=== PATIENT | female | born 1965 | race Asian ===

== ENCOUNTER 2024-06-13 10:34 | Emergency (ER) | payer OTHER ==
[~2024-06-13] VITALS: Ht 154.9 cm; Wt 51.4 kg
[2024-06-13 10:49] VITALS: TEMP 97.6
[2024-06-13 11:12] LABS: BASOPHILS % (AUTO) 1.1 % (0.0-2.0); EOSINOPHILS % (AUTO) 6.1 % (1.0-6.0); HEMOGLOBIN 12.8 g/dL (12.0-16.0); LYMPHOCYTES # (AUTO) 2.2 K/uL (1.0-4.8); LYMPHOCYTES % (AUTO) 31.7 % (22.0-44.0); MEAN CORPUSCULAR HEMOGLOBIN 31.8 pg (26.0-34.0); MEAN CORPUSCULAR HGB CONC 34.5 G/dL (31.0-37.0); MEAN CORPUSCULAR VOLUME 92 fL (80-100); MONOCYTES # (AUTO) 0.5 K/uL (0.1-1.0); MONOCYTES % (AUTO) 7.6 % (2.0-9.0); NEUTROPHILS # (AUTO) 3.7 K/uL (1.8-7.7); NEUTROPHILS % (AUTO) 53.5 % (40.0-70.0); PLATELET COUNT (AUTO) 303 K/uL (150-450); RED BLOOD CELL COUNT(AUTO) 4.01 MIL/uL (4.00-5.20); RED CELL DISTRIBUTION WIDTH 12.3 % (11.5-14.5)
[2024-06-13 11:19] LABS: ANION GAP 6 mmol/L (8-16); CALCIUM, TOTAL 8.7 mg/dL (8.8-10.5); CARBON DIOXIDE 28 mmol/L (22-29); CHLORIDE 104 mmol/L (98-107); CREATININE 1.14 mg/dL (0.60-1.30); GLOMERULAR FILTR. RATE CALC 48 mL/min (>60); GLUCOSE,RANDOM 229 mg/dL (70-110); POTASSIUM 3.4 mmol/L (3.5-5.1); SODIUM SERUM 138 mmol/L (136-145); UREA NITROGEN, BLOOD 13 mg/dL (7-18)
[2024-06-13 11:28] LABS: TROPONIN I-HIGH SENSITIVITY 6 ng/L (<51)
[2024-06-13 11:38] VITALS: BP 160/86; PULSE 60; RESP 18; O2SAT 97
[2024-06-13] MEDS: POTASSIUM CHLORIDE 20 MEQ ER TABLET PO ONE (12:32)
[2024-06-13 12:49] LABS: COVID AG,FIA SOURCE NASAL SWAB
[2024-06-13 13:16] LABS: SARS-COV2 (COVID) ANTIGEN,FIA Negative (Negative)
[2024-06-13 13:17] LABS: INFLUENZA TYPE A NEGATIVE FOR TYPE A (NEGATIVE); INFLUENZA TYPE B NEGATIVE FOR TYPE B (NEGATIVE)
== END 2024-06-13 13:42 | disposition home or self-care (01) ==
LOC: EMS 10:43
DX: R09.1 Pleurisy (principal); R07.89 Other chest pain; I10 Essential (primary) hypertension; E87.6 Hypokalemia; Z20.822 Contact with and (suspected) exposure to COVID-19
CPT/HCPCS: 71045; 80048; 84484; 85025; 87804; 93005; 99285; 36415-L1; 36415-TC